=== PATIENT | male | born 1965 | race Caucasian/White ===

== ENCOUNTER → 2020-01-25 | Outpatient (CLI) | payer OTHER ==
[~2020-01-25] MED LIST: AVPAK EXTENDED100 M1 PO; KLONOPIN2 M1 PO; V-C FORTE CAPSUL1 MG PO
== END | disposition home or self-care (01) ==
LOC: LAB 15:03
PROVIDERS: Psychiatry & Neurology Neurology
DX: G40.812 Lennox-Gastaut syndrome, not intractable, without status epilepticus (principal)

== ENCOUNTER 2020-01-30 10:48 | Inpatient (IN) | payer OTHER ==
[2020-01-30 10:51] VITALS: BP 138/77
[2020-01-30 11:19] LABS: BASO % 0.4 % (0.0-1.0); EOS % 0.1 % (1.0-4.0); LYMPH # 1.2 10*3/uL (1.3-4.4); LYMPH % 15.4 % (27.0-41.0); MEAN CELL VOLUME 94.7 fl (80.0-94.0); MEAN CORPUSCULAR HGB 31.9 pg (27.0-31.0); MEAN CORPUSCULAR HGB CONC 33.7 g/dl (33.0-37.0); MEAN PLATELET VOLUME 9.4 fl (9.6-12.3); MONO # 1.2 10*3/uL (0.1-1.0); MONO % 16.1 % (3.0-9.0); NEUT # 5.2 10*3/uL (2.3-7.9); NEUT % 67.9 % (47.0-73.0); PLATELET COUNT AUTOMATED 197 10*3/uL (130-400); RED BLOOD COUNT 4.33 10*6/uL (4.50-5.90); RED CELL DISTRI WIDTH 12.5 % (0-14.5); WHITE BLOOD COUNT 7.6 10*3/uL (4.8-10.8)
[2020-01-30 11:35] LABS: ALBUMIN 4.5 gm/dl (3.1-4.5); ALKALINE PHOSPHATASE 85 U/L (45-117); BUN 23 mg/dl (7-24); CHLORIDE 99 mmol/L (98-107); CREATININE 1.28 mg/dL (0.70-1.30); POTASSIUM 3.7 mmol/L (3.5-5.1); SGOT/AST 53 IU/L (3-35); SGPT/ALT 46 U/L (12-78); SODIUM 134 mmol/L (136-145); TOTAL PROTEIN 7.7 gm/dL (6.4-8.2)
[2020-01-30 11:36] LABS: ETHYL ALCOHOL < 3.0 mg/dl (<3)
--- NOTE | 2020-01-30 11:47 | NUR ---
ALTHOUGH PT IS ALERT AND ORIENTED AND ANSWERS QUESTIONS APPROPRIATELY WHEN ASKED TO STAND, HE SITS UPRIGHT IN BED AND SEEMS EITHER UNABLE TO PHYSICALLY STAND OR CONFUSED ON WHAT IT ACTUALLY MEANS TO STAND. PT STATES HE KNOWS WHAT "STANDING UP" MEANS BUT DESPITE REPEATED ATTEMPTS IS UNABLE TO MAKE HIS BODY STAND. IT APPEARS SIMILAR TO A DYSKINESIA. DR MATHEWS MADE AWARE. PT WAS ASKED TO VP DESIGN ORDER TO PROVIDE A URINE SPECIMEN USING A URINAL AND CLAIMS HE IS UNABLE TO URINATE SITTING DOWN.
--- NOTE | 2020-01-30 12:45 | NUR ---
PT NOW STANDS DIRECTLY UPRIGHT AT THE FOOT OF THE BED AND STARTS SCREAMING LOUDLY AND USING PROFANE LANGUAGE AND APPEARS TO BE TRYING TO URINATE INTO THE WASTE BIN AT DOORWAY. I DID WALK PT TO BATHROOM WHERE I DID COLLECT URINE IN URINAL AND RETURNED HIM TO BED, DISROBED HIM AND BAGGED ALL CLOTHING, SHOES AND A SET OF KEYS AND PLACED IN MED ROOM. PT DID QUICKLY CALM DOWN AND WAS COMPLIANT AT ALL TIMES DESPITE THE SCREAMING AND CURSING. NEW MED ORDERS OBTAINED.
[2020-01-30 13:18] LABS: URINE AMPHETAMINES < 1000 (1000ng/ml); URINE BARBITURATES < 200 (200ng/ml); URINE BENZODIAZEPINES < 200 (200ng/ml); URINE CANNABINOIDS (THC) < 50 (50ng/ml); URINE COCAINE < 300 (300ng/ml); URINE METHADONE < 300 (300ng/ml); URINE OPIATES < 300 (300ng/ml)
[2020-01-30 13:26] LABS: URINE PHENCYCLIDINE < 25 (25ng/ml)
--- NOTE | 2020-01-30 14:16 | NUR ---
psychiatric assessment: met with client, he is not oriented to time, he does know who he is, he knows he is in a hospital but he thinks he is upstairs and that we switched the doctor out to the one that is in the er, he is having extreme flight of ideas, he is paranoid, he is yelling out when he goes into the bathroom, he appears paranoid, he doesnt think that he can stand up, but once he is helped up, then he understands that he can walk. he was found in his neighborhood, wandering and talking, confused and was brought to the er, i cannot get any furhter hx from him as he is not able to converse in a productive manner. once this client is medically stable i will refer him to the [facility] here. i am waiting on further labs.
--- NOTE | 2020-01-30 14:59 | NUR ---
PT UP TO WASTE BIN AGAIN WITH APPARENT MASTRUBATORY BEHAVIOR. RETURNED TO BED WITHOUT COMPLAINT. CALM AND COMPLIANT.
--- NOTE | 2020-01-30 17:02 | NUR ---
PT. STRAIGHT CATHED FOR 100CC OF URINE. PT COOPERATIVE, NOT ORIENTED.
[2020-01-30 17:08] LABS: BILIRUBIN NEGATIVE (NEGATIVE); BLOOD TRACE-LYSED (NEGATIVE); CLARITY CLEAR (CLEAR); COLOR YELLOW (YELLOW); GLUCOSE NEGATIVE (NEGATIVE); KETONE NEGATIVE (NEGATIVE); LEUKO ESTERASE NEGATIVE (NEGATIVE); NITRITE NEGATIVE (NEGATIVE); UROBILINOGEN 0.2 E.U./dl (0.2-1.0)
[2020-01-30 17:10] LABS: BACTERIA TRACE; EPITHELIAL CELLS 41-50
--- NOTE | 2020-01-30 18:25 | NUR ---
GAVE [facility] REPORT. PT.IS RESTING IN BED, TALKING TO HIMSELF
--- NOTE | 2020-01-30 19:40 | NUR ---
PATIENT MOVED INTO ROOM 2011 AT THIS TIME DUE TO PATIENT TRYING TO ELOPE. PRIOR TO PATIENT ATTEMPT TO ELOPE PATIENT WAS LYING IN BED TALKING TO SELF, THEN CLIMBED OUT OF BED AND STRIPPED NAKED. PATIENT THEN ATTEMPTED TO WALK OUT OF THE AMBULANCE BAY DOORS. RN TRIED TO REDIRECT PATIENT AT THIS TIME WITHOUT SUCCESS. EMS WERE HERE AND HELPED STOP PATIENT. PATIENT WAS NOT VIOLENT AT THIS TIME BUT HE DID NOT WANT TO BE TOUCHED AND JERKED HIS ARM AWAY FROM RN TOUCH. PATIENT THEN LOWERED TO THE GROUND AND WRAPPED IN A SHEET AND PLACED ON EMS CART AND THEN TRANSPORTED TO ROOM 2011 FOR PATIENT SAFETY FROM ELOPING. PATIENT THEN SAT ON FLOOR IN ROOM.
[2020-01-30] MEDS ORDERED: AVPAK EXTENDED100 M1 PO (19:53)
[2020-01-30] MEDS ORDERED: V-C FORTE CAPSUL1 MG PO (19:54)
--- NOTE | 2020-01-30 20:55 | NUR ---
REPORT GIVEN TO TAMEKA FROM [facility] AT THIS TIME, TAMEKA HERE TO TRANSPORT PATIENT TO [facility] WITH SECURITY AT THIS TIME.
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
--- NOTE | 2020-01-30 21:22 | NUR ---
BRITTNEEDON 10MG IM GIVEN IN LEFT THIGH UNABLE TO GET A SECURE HOLD TO TURN HIM. CLIENT THEN YELLED OUT AFTER THE SHOT YOUR TRYING TO BRING BACK A [employer]. ASSIST OF 4 USED FOR SAFETY
--- NOTE | 2020-01-30 21:45 | NUR ---
DR Peter YOUNG NOTIFIED OF ADMISSION. FULL UPDATE PROVIDED
--- NOTE | 2020-01-30 22:28 | NUR ---
SLEEPING AT THIS TIME. APPEARS GEODON EFFECTIVE
--- NOTE | 2020-01-30 22:28 | NUR ---
SLEEPING AT THIS TIME. APPEARS GEODON EFFECTIVE
[2020-01-30 23:14] VITALS: BP 116/68
--- NOTE | 2020-01-31 | NUR ---
RESTING QUIET IN QUIET ROOM. CLIENT HAS NO MEMORY OF EVENTS OF THE DAY. APPEARS DAZED BUT COOPERATIVE AND POLITE. IN QUIET ROOM FOR CLOSER MONITORING
--- NOTE | 2020-01-31 00:24 | NUR ---
RESTING QUIET IN QUIET ROOM. CLIENT HAS NO MEMORY OF EVENTS OF THE DAY. APPEARS DAZED BUT COOPERATIVE AND POLITE. IN QUIET ROOM FOR CLOSER MONITORING
--- NOTE | 2020-01-31 01:10 | NUR ---
INCONTINENT OF URINE. CHANGED AND CLIENT REQUESTS TO STAY IN EDI-CHAIR. APPEARS TO BE CLEARING MENTALLY
--- NOTE | 2020-01-31 04:59 | NUR ---
24 HR chart check completed.
--- NOTE | 2020-01-31 06:03 | NUR ---
CHANGED AFTER BEING INCONTINENT OF URINE. STILL DOESN'T RECALL ACTIVITIES OF YESTERDAY. MILD TREMORS NOTED IN ARMS AT TIMES. SPEACH CLEARER AND NOT PRESSURED. SLEPT A BROKEN 5 HOURS. CURRENTLY WATCHING TV
--- NOTE | 2020-01-31 08:27 | NUR ---
PT REFUSED VITAL SIGNS. WILL ATTEMPT AT A LATER TIME
--- NOTE | 2020-01-31 08:35 | NUR ---
PHYSICAL THERAPY Physical therapy evaluation attempted. Discussed with Nurse Lamb. Patient is pacing throughout BHU with no difficulty ambulating. Screen only at this time, no PT needs. Discharge PT orders. Thank you. Leah Gardiner,PT,DPT
--- NOTE | 2020-01-31 09:00 | NUR ---
Treatment Plan meeting was held this a.m. with Dr. Raymond, MARILYN Martinez, RN, AT, ARTIFICIAL SNOW MAKING MACHINE OPERATOR-S and Education Reviewer. Plan for discharge at the end of the week. Beginning of next week.
[2020-01-31 09:08] LABS: BASO % 0.4 % (0.0-1.0); EOS % 0.4 % (1.0-4.0); HEMATOCRIT 44.4 % (42.0-52.0); LYMPH # 0.9 10*3/uL (1.3-4.4); MEAN CELL VOLUME 93.5 fl (80.0-94.0); MEAN CORPUSCULAR HGB 31.6 pg (27.0-31.0); MEAN CORPUSCULAR HGB CONC 33.8 g/dl (33.0-37.0); MEAN PLATELET VOLUME 9.6 fl (9.6-12.3); MONO # 1.2 10*3/uL (0.1-1.0); MONO % 14.8 % (3.0-9.0); NEUT # 5.8 10*3/uL (2.3-7.9); NEUT % 73.1 % (47.0-73.0); PLATELET COUNT AUTOMATED 230 10*3/uL (130-400); RED BLOOD COUNT 4.75 10*6/uL (4.50-5.90); RED CELL DISTRI WIDTH 12.5 % (0-14.5); WHITE BLOOD COUNT 7.9 10*3/uL (4.8-10.8)
[2020-01-31 09:41] LABS: ALBUMIN 4.7 gm/dl (3.1-4.5); ALKALINE PHOSPHATASE 98 U/L (45-117); BUN 17 mg/dl (7-24); CHLORIDE 102 mmol/L (98-107); CHOLESTEROL 214 mg/dL (<200); CREATININE 1.15 mg/dL (0.70-1.30); HDL CHOLESTEROL 84 mg/dl (40-60); LDL CHOLESTEROL 116 mg/dL (9-159); SGOT/AST 77 IU/L (3-35); SGPT/ALT 51 U/L (12-78); SODIUM 139 mmol/L (136-145); TOTAL PROTEIN 8.3 gm/dL (6.4-8.2); TRIGLYCERIDES 69 mg/dl (<150); VLDL CHOLESTEROL 14 mg/dL (6-40)
[2020-01-31 10:04] LABS: VITAMIN D, 25-HYDROXY 28.6 ng/mL (30-100)
--- NOTE | 2020-01-31 10:20 | NUR ---
CLIENT IN QUIET ROOM HOLDING ARMS AND HANDS UP IN THE AIR AND YELLING "ITS NOT TIME". CLIENT JUMPING UP AND DOWN ACTING LIKE HE IS BOXING. CLIENT ACTING LIKE HE IS PUNCHING THE WALL, MAKING CONTACT WITH HIS FIST AND THE WALL LIGHTLY. CLIENT HAS RAMBLING ABOUT NONSENSICAL THINGS. UNABLE TO REDIRECT CLIENT AT THIS TIME. CODY NUNEZ UPDATED ON CLIENT CONDITION. ONCE MAYRA LOOKED AT CLIENT FROM ANOTHER ROOM THE CLIENT POINTED AT HER AND STATED "BLACK BITCH, GET OUT OF HERE" CLIENT PACING, RESTLESS, AGITATED, IRRITABLE, AND MANIC. PER MAYRA GIVE ATIVAN AND BRITTNEEDON NOW. WILL MONITOR CLIENT FOR EFFECTIVENESS OF MEDICATION.
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
--- NOTE | 2020-01-31 11:18 | NUR ---
Patient voicing paranoid delusions when this television writer met with him this AM. Pt displayed a suspicious and somewhat angry affect as he stated, "I know you're a doctor. I'm not telling you anything. You've run a background check on me. You know what you need to know." Pt continued that he knows all about psychotherapy playing with people's minds and he won't have it. Pt then pointed to a staff member standing in the olivo and stated, "And that alice can go to [facility]. I'm not telling her anything either. You want to play the game. I can play the game." Also observed pt talking to the unseen.
--- NOTE | 2020-01-31 11:19 | NUR ---
OT NOTE Occupational therapy order received and chart reviewed. Per discussion with nurse Lamb from [facility], patient is currently not appropriate for an OT evaluation. Per chart review, patient is ambulatory, however, ADL functional status is unknown. Will follow up with patient when appropriate. Thank you. Ann Barry, OTR/L
--- NOTE | 2020-01-31 15:50 | NUR ---
GROUP A AND B PT IS UNABLE TO ATTEND GROUP THERAPY AT THIS TIME. PT REMAINED IN A QUIET ROOM. PT ASSESSMENT WILL BE ATTEMPTED TOMORROW.
--- NOTE | 2020-01-31 18:33 | NUR ---
NASOPHARYNGEAL SWAB COLLECTED FOR COVID TESTING AND SENT TO LAB, PATIENT TOLERATED WELL.
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
[2020-01-31 20:00] VITALS: BP 139/78
--- NOTE | 2020-01-31 21:38 | NUR ---
Patient alert to person only. Mood isolative and withdrawn. Auditory and visual hallucinations noted with patient talking and responding to unseen others. Patient compliant with HS medications without any difficulty. Attempted to provided 1:1 for emotional support and therapeutic communication but patient refused. Patient ambulating hallway with steady gait unassisted but went to wrong room. Redirection effective with encouragement and was able to go to his room. Plan to continue to encourage medication compliance. Also will continue to offer 1:1 for emotional support and therapeutic communication. Redirect/reorient when needed/appropriate. Will continue to monitor moods/behaviors. Q 15 minute safety checks continued and maintained. See [facility] flowsheet for further documentation.
--- NOTE | 2020-02-01 00:18 | NUR ---
24 HR chart check completed.
--- NOTE | 2020-02-01 04:23 | NUR ---
Patient yelling out leave,evil,reset,live,God bless,there is no God,increased anxiety,shaking,non-sensical speech and staring up at ceiling. Redirection unsuccessful at this time. All non-pharmacological ineffective. Medicated with Ativan 1 mg IM as per doctor's order for increased anxiety/agitation. Will continue to monitor moods/behaviors.
--- NOTE | 2020-02-01 04:56 | NUR ---
Patient continued increased anxiety,yelling out,threatening unseen others,non-sensical speech and shaky. Unsuccessful attempts at redirection. Non-pharmacological interventions ineffective. Medicated with Geodon 10mg IM prn given as per doctor's order. Will continue to monitor moods/behaviors.
--- NOTE | 2020-02-01 05:19 | NUR ---
Patient resting quietly at this time. PRN medications effective. Will continue to monitor moods/behaviors.
--- NOTE | 2020-02-01 05:58 | NUR ---
Patient slept approx. 3 hours of interrupted sleep throughout shift. Q 15 minute safety checks continued and maintained.
[2020-02-01 07:34] VITALS: BP 132/65
--- NOTE | 2020-02-01 08:30 | NUR ---
Treatment Plan meeting was held this a.m. with MARILYN Martinez, RN, AT, RHODA-S and Roll Out Manager. Plan for discharge Next Week. Pt. will return home.
--- NOTE | 2020-02-01 11:50 | NUR ---
AM GROUP/ EXERCISE AND PICTIONARY PT DID NOT ATTEND MORNING GROUP THERAPY. PT WAS SITTING IN HIS ROOM AND CHOSE NOT TO ATTEND.
[2020-02-01] MEDS ORDERED: KLONOPIN2 M1 PO (13:04)
--- NOTE | 2020-02-01 13:05 | NUR ---
SPOKE WITH DR VILLAVICENCIO RE: PT BROTHER STATING HE SEES A NEUROLOGIST IN [place], [place] AND TAKES KLONOPIN 2MG TID FOR SEIZURES AND WAS TOLD HE IS NOT SUPPOSED TO STOP TAKING THE MEDS. MEDICATION VERIFIFED WITH PT CLAIM HISTORY, PER DR VILLAVICENCIO CONTINUE KLONOPIN.
--- NOTE | 2020-02-01 15:37 | NUR ---
GROUP A AND GROUP B PT DID NOT ATTEND EITHER GROUP THERAPY SESSION. PT WAS IN HIS ROOM.
--- NOTE | 2020-02-01 17:06 | NUR ---
CLIENT A&O TO PERSON, PLACE, TIME, AND SITUATION. CLIENT WITHDRAWN AND ISOLATIVE, BUT CALM. MEDICATION COMPLIANT WITHOUT DIFFICULTY. DENIES HALLUCINATIONS, DELUSIONS, SI/HI. NO OVERT S/S OF HALLUCINATIONS. EYE DARTING NOTED WHEN CODY RIVERA WAS IN ROOM TALKING TO HIM. NO SEXUAL BEHAVIORS NOTED. ANXIOUS MOOD. AMBULATORY WITH A STEADY GAIT. SLIGHT TREMORS NOTED. DENIES PAIN AT THIS TIME. 1:1 PROVIDED FOR THERAPEUTIC COMMUNICATION. BEHAVIORS MONITORED WITH Q15 MINUTE SAFETY CHECKS. SEE [facility] FLOWSHEET FOR SPECIFIC MONITORING. SPEECH IS GARBLED AND SLURRED AT TIMES. CLIENT GAVE PERMISSION TO THIS NURSE TO SPEAK TO HIS ELDEST BROTHER, SOFIA. BROTHER STATED PT SEES DR BAILON IN [place], WHOM IS A NEUROLOGIST. AND STATED PT IS CHANGING DRS FROM DR DORSEY TO [place]. CLIENTS APPOINTMENT WAS SCHEDULED FOR TODAY. SOFIA STATED CLIENT HAS A SCAR ON HIS BRAIN. IRRITABLE BOWEL/NERVOUS BOWEL, AND SCHIZOPHRENIA. SOFIA ALSO STATED CLIENT HAS AN APPOINTMENT AT [facility] ON February FOR AN EEG AND CLIENTS LAST SEIZURE WAS AT AGE 18. BROTHER THEN STATED HE WAS POA AND WAS ATTEMPTING TO GET IN CLIENTS APARTMENT TO GET THE PAPER WORK. SOFIA DROPPED PAPERWORK OFF AT THE HOSPITAL. PROJECT BUYER MADE AWARE. SWEATBAND MAKER MADE AWARE OF CLIENT APPOINTMENT. SOFIA ALSO STATED CLIENT WAS ON KLONOPIN 2MG TID FOR SEIZURES AND WAS RECOMMENDED BY THE NEUROLOGIST NOT TO STOP TAKING. DR VILLAVICENCIO MADE AWARE AND RECEIVED NEW ORDERS TO ADD KLONOPIN PREVIOUSLY TAKEN. SOFIA ALSO STATED THIS CLIENT HAS NERVE ISSUES AND BAD MOTOR SKILLS.
[2020-02-01 20:00] VITALS: BP 112/77
--- NOTE | 2020-02-01 21:21 | NUR ---
Patient alert and oriented x3. Mood anxious,isolative and withdrawn. Patient isolative to self while in diningroom with other patients. Patient's eyes were darting about room. No overt s/s of responding to internal stimuli at this time. Patient compliant with HS medications without any difficulty. Attempted to provided 1:1 for emotional support and therapeutic communication but patient refused. Patient ambulating hallway with steady gait unassisted Redirection effective with encouragement. Plan to continue to encourage medication compliance. Also will continue to offer 1:1 for emotional support and therapeutic communication. Redirect/reorient when needed/appropriate. Will continue to monitor moods/behaviors. Q 15 minute safety checks continued and maintained. See [facility] flowsheet for further documentation.
--- NOTE | 2020-02-02 00:15 | NUR ---
24 HR chart check completed.
--- NOTE | 2020-02-02 05:52 | NUR ---
Patient slept approx. 6 hours throughout shift. Q 15 minute safety checks continued and maintained.
[2020-02-02 08:00] VITALS: BP 148/80
--- NOTE | 2020-02-02 08:30 | NUR ---
Treatment Plan meeting was held this a.m. with Dr. Raymond via telephone, MARILYN Martinez, RN, AT, SMALL ELECTRIC ENGINE TECHNICIAN-S and Senior Treasury Analyst. Plan for discharge Next week. Pt. will return home at discharge.
--- NOTE | 2020-02-02 08:36 | NUR ---
Patient sitting in quiet room listening to radio quietly. Respirations easy and regular. Vital signs stable. No overt distress. [facility] DELGADO [facility]- on unit to see pt at this time, update given.
--- NOTE | 2020-02-02 09:00 | NUR ---
DR. BOYER ON UNIT TO ASSESS PATEINT.
--- NOTE | 2020-02-02 10:51 | NUR ---
MIGUEL BORRERO CNP ON UNIT TO ASSESS PATIENT.
--- NOTE | 2020-02-02 11:25 | NUR ---
PATIENT VOLUNTARILY SIGNED CONSENT TO TREAT.
--- NOTE | 2020-02-02 14:19 | NUR ---
Recieved call from pt's brother Alvaro Ashton, , pt gave this RN permission to speak with brother regarding pt's care. Alvaro provided pt's neurologist's name and phone number, Dr.Mohammad Davis [phone]. Alvaro states pt has an EEG scheduled for February 09 and states he is able to transport Lucio to this EEG if pt is discharged by then. Alvaro also states he is able to transport pt home at hospital discharge. At the conlcusion of the conversation Alvaro stated that on the day pt had his appointment, either January 23 or , with neurologist , that as he was getting into the car on the way to this appointment the patient "hit his head pretty hard". Alvaro states the pt did see the neurologist on that same date after this happened but neither the pt or the pt's brother reported this to . Call placed to [facility] and made aware of the above.
--- NOTE | 2020-02-02 18:41 | NUR ---
P- Slightly guarded. I- Orientation, mood and behaviors assessed. Assessed pt for SI/HI, hallucinations, paranoia and/or delusions. Medications administered as per physicians orders. Med education provided. Encouraged pt to attend and participate in morris milieu groups and activities. R- Pt is alert and oriented x4. Memory appears intact. Resps easy and even on room air. Mood stable, affect appropriate. Slightly guarded. Speech is rapid, soft, able to make needs known without difficulty. Pt denies SI/HI, hallucinations, paranoia or delusions. No evidence of sensory disturbances noted. Pt is medication compliant without difficulty. Interacts well with staff and peers. No aggressive behaviors or elopement attempts. Medication compliant without difficulty. No distress noted. P- Plan to continue current treatment, continue to monitor mood and behaviors, provide appropriate reorientation, redirection and 1:1 as needed. Continue to encourage medication compliance as well as group attendance and participation.
[2020-02-02 19:09] VITALS: BP 123/73
--- NOTE | 2020-02-02 22:05 | NUR ---
Patient alert and oriented x3. Mood calm,pleasant and cooperative. Patient more interactive with staff and other patients. No overt s/s of responding to internal stimuli at this time. Patient compliant with HS medications without any difficulty. Provided 1:1 for emotional support and therapeutic communication Patient ambulating hallway with steady gait unassisted. Redirection effective with encouragement. Plan to continue to encourage medication compliance. Also will continue to offer 1:1 for emotional support and therapeutic communication. Redirect/reorient when needed/appropriate. Will continue to monitor moods/behaviors. Q 15 minute safety checks continued and maintained. See [facility] flowsheet for further documentation.
--- NOTE | 2020-02-03 00:18 | NUR ---
24 HR chart check completed.
--- NOTE | 2020-02-03 06:52 | NUR ---
Patient slept approx. 6 hours throughout shift. Q 15 minute safety checks continued and maintained.
[2020-02-03 07:30] VITALS: BP 111/70
--- NOTE | 2020-02-03 08:15 | NUR ---
OT NOTE Occupational therapy order received and chart reviewed. Per discussion with nurse Tanner from [facility], patient is performing independent ADLs and independently completing functional mobility throughout the [facility]. No further OT indicated at this time, will discharge OT orders. Thank you for the referral. Ann Barry, OTR/L
--- NOTE | 2020-02-03 08:30 | NUR ---
Treatment Plan meeting was held this a.m. with Dr. Raymond, RN, AT, POWER CHECKER-S and Delivery Crew Member. Plan for dicharge next week. Pt. will return home at discharge.
--- NOTE | 2020-02-03 09:26 | NUR ---
rounded via telehealth. Medication changes made as per , orders read back and verified.
--- NOTE | 2020-02-03 11:51 | NUR ---
CORDELIA GROUP/LORENZO PT ATTENDED MORNING GROUP THERAPY AND PARTICIPATED IN ALL ACTIVITIES. PT WAS FOCUSED AND KNOWLEDGABLE. PT EXHIBITED NO ADVERSE BEHAVIORS WHILE IN GROUP.
--- NOTE | 2020-02-03 15:10 | NUR ---
Pt signed release of information allowing this RN to contact to request medical records. Attempted to obtain records from the office of . Recieved answering machine which states 's office is closed for the February 04 holiday, will reopen FridayFebruary 06.
--- NOTE | 2020-02-03 15:17 | NUR ---
Shift chart check completed.
--- NOTE | 2020-02-03 15:43 | NUR ---
GROUP A / BETTY PT ATTENDED GROUP THERAPY AND PARTICIPATED BY PLAYING BETTY. PT EXHIBITED NO ADVERSE BEHAVIORS WHILE IN GROUP.
--- NOTE | 2020-02-03 15:48 | NUR ---
GROUP B / BINGO PT ATTENDED GROUP THERAPY AND PARTICIPATED BY PLAYING [employer]. PT EXHIBITED NO ADVERSE BEHAVIORS WHILE IN GROUP.
--- NOTE | 2020-02-03 17:41 | NUR ---
No adverse moods or behaviors this shift. Pt is alert and oriented x4. Resps easy and even on room air. Mood appears stable, affect blunted. Speech is soft, rapid at times, able to communicate effectively and makes needs known. Pt denies SI/HI, intent or plan. Pt denies hallucinations, no response to internal stimuli noted. No paranoia or delusions noted. Pt is medication compliant without difficulty. Independent with ADLs. Ambulatory with steady gait. Interacts appropriately with staff and peers. Attending groups and activities. No aggressive behaviors or elopement attempts. No distress noted. Plan to continue current treatment, continue to monitor mood and behaviors, provide appropriate reorientation, redirection and 1:1 as needed. Continue to encourage medication compliance as well as group attendance and participation.
[2020-02-03 19:27] VITALS: BP 117/65
--- NOTE | 2020-02-03 20:18 | NUR ---
24 HR chart check completed.
--- NOTE | 2020-02-04 00:27 | NUR ---
PT HAS BEEN STABLE. ALERT & ORIENTED TO PERSON, PLACE & TIME. PLEASANT INTERACTIONS. SAT IN THE DINING ROOM COLORING & THEN WATCHED A MOVIE WITH PEERS. NO BEHAVIORS. PT HAS REMAINED CALM. COMPLIANT WITH MEDICATIONS. NO PHYSICAL COMPLAINTS VOICED. WILL CONTINUE TO MONITOR.
--- NOTE | 2020-02-04 05:13 | NUR ---
PT HAS SLEPT PAST 2315 WITH A BRIEF AWAKENING TO GO TO THE BATHROOM
[2020-02-04 08:05] VITALS: BP 123/85
--- NOTE | 2020-02-04 10:50 | NUR ---
on unit to see pt at this time.
--- NOTE | 2020-02-04 17:32 | NUR ---
No adverse moods or behaviors this shift. Pt is A+Ox4. Memory intact. Resps easy and even. Polite, calm and cooperative. Mood stable, affect blunted. Speech is WNL and coherent, able to make needs known without difficulty. Pt denies SI/HI, intent or plan. Pt denies hallucinations, no response to internal stimuli noted. No paranoia or delusions. Medication compliant without difficulty. Interacting appropriately with staff and peers, spent a majority of the day coloring and socalizing with peers in dining room. No behaviors. Plan to continue current treatment.
--- NOTE | 2020-02-04 18:15 | NUR ---
SHIFT CHART CHECK COMPLETED.
--- NOTE | 2020-02-04 19:42 | NUR ---
24 HR chart check completed.
[2020-02-04 19:52] VITALS: BP 116/66
--- NOTE | 2020-02-04 21:23 | NUR ---
PT HAS BEEN STABLE. ALERT & ORIENTED TO PERSON, PLACE & TIME. PLEASANT INTERACTIONS. SAT IN THE DINING ROOM COLORING & WATCHED A MOVIE WITH PEERS. ALSO SAT & LISTENED TO MUSIC. STATED "LAST NIGHT WAS THE BEST NIGHT I'VE HAD FOR A LONG TIME. I SLEPT LIKE A ROCK". NO BEHAVIORS. PT HAS REMAINED CALM. COMPLIANT WITH MEDICATIONS. NO PHYSICAL COMPLAINTS VOICED. WILL CONTINUE TO MONITOR.
--- NOTE | 2020-02-05 06:00 | NUR ---
PT HAS SLEPT PAST 29
[2020-02-05 07:36] VITALS: BP 113/67
--- NOTE | 2020-02-05 17:56 | NUR ---
Patient resting quietly with no c/o discomfort. Respirations easy and regular. Vital signs stable. No overt distress. GIVENS,WILLIAM
--- NOTE | 2020-02-05 19:29 | NUR ---
24 HR chart check completed.
[2020-02-05 19:35] VITALS: BP 129/78
--- NOTE | 2020-02-06 05:27 | NUR ---
PT HAS SLEPT QUIETLY PAST 2330 WITH 1 BRIEF AWAKENING TO GO TO THE BATHROOM
[2020-02-06 07:28] VITALS: BP 124/65
[2020-02-06 19:49] VITALS: BP 121/62
--- NOTE | 2020-02-06 20:20 | NUR ---
24 HR chart check completed.
--- NOTE | 2020-02-07 04:35 | NUR ---
PT HAS SLEPT PAST 3320
[2020-02-07 07:40] VITALS: BP 130/85
--- NOTE | 2020-02-07 08:30 | NUR ---
Treatment Plan meeting was held this a.m. with Dr. Raymond via telephone, COUNSELOR AIDE Michelle, RN, AT, [employer] and [employer]. Plan for discharge today. Pt. will follow with [facility].
--- NOTE | 2020-02-07 10:23 | NUR ---
DR NUNES UPDATED ON PT DISCHARGE
--- NOTE | 2020-02-07 13:47 | NUR ---
Patient was discharged to home today. Follow-up was scheduled with [facility]. While at [facility], pt's psychosis resolved. Pt participated in programming and was social with both peers and staff.
== END 2020-02-07 13:15 | disposition home or self-care (01) | DRG 750 ==
LOC: ED 10:48 → 3N 18:53 → EDHOLD 18:53 → 3N 19:02
PROVIDERS: Emergency Medicine; Nurse Practitioner Women's Health; ADMIT Psychiatry & Neurology Psychiatry
DX: F25.9 Schizoaffective disorder, unspecified (principal); F23 Brief psychotic disorder; E55.9 Vitamin D deficiency, unspecified; G40.909 Epilepsy, unspecified, not intractable, without status epilepticus; E78.00 Pure hypercholesterolemia, unspecified; Z91.040 Latex allergy status; Z83.3 Family history of diabetes mellitus; Z80.8 Family history of malignant neoplasm of other organs or systems; Z03.818 Encounter for observation for suspected exposure to other biological agents ruled out

== ENCOUNTER → 2020-05-31 | Outpatient (CLI) | payer OTHER ==
[~2020-05-31] MED LIST changes: +BENZTROPINE MESY1 MG PO; +ELIQUIS5 M1 PO; +EXTENDED PHENY200 MG PO; +PHENYTEK200 MG PO; +SEROQUEL XR150 MG PO
== END | disposition home or self-care (01) ==
LOC: RAD 10:41
PROVIDERS: ATTEND Internal Medicine Hematology & Oncology
DX: D68.69 Other thrombophilia (principal); Z86.718 Personal history of other venous thrombosis and embolism

== ENCOUNTER → 2020-06-01 | Outpatient (CLI) | payer OTHER | END | disposition home or self-care (01) | LOC: CT 05:03 | PROVIDERS: ATTEND Internal Medicine Hematology & Oncology | DX: N28.1 Cyst of kidney, acquired (principal); M47.814 Spondylosis without myelopathy or radiculopathy, thoracic region; M47.816 Spondylosis without myelopathy or radiculopathy, lumbar region; D68.69 Other thrombophilia; Z86.718 Personal history of other venous thrombosis and embolism ==

== ENCOUNTER 2020-07-08 03:13 | Emergency (ER) | payer OTHER ==
[~2020-07-08] VITALS: Ht 177.8 cm; Wt 70.3 kg
[~2020-07-08 03:13] MED LIST changes: -BENZTROPINE MESY1 MG PO; -ELIQUIS5 M1 PO; -EXTENDED PHENY200 MG PO; -PHENYTEK200 MG PO; -SEROQUEL XR150 MG PO
== END 2020-07-08 09:02 | disposition home or self-care (01) ==
LOC: ED 03:13
DX: R51.9 Headache, unspecified (principal); M54.2 Cervicalgia; M25.512 Pain in left shoulder; F25.9 Schizoaffective disorder, unspecified; E78.00 Pure hypercholesterolemia, unspecified; G40.909 Epilepsy, unspecified, not intractable, without status epilepticus; Z91.040 Latex allergy status; Z79.899 Other long term (current) drug therapy; Z98.890 Other specified postprocedural states; W10.8XXA Fall (on) (from) other stairs and steps, initial encounter; Y93.89 Activity, other specified; Y92.89 Other specified places as the place of occurrence of the external cause; Y99.8 Other external cause status

== ENCOUNTER 2020-07-11 18:25 | Emergency (ER) | payer OTHER ==
[~2020-07-11] VITALS: Ht 185.4 cm; Wt 71.7 kg
[2020-07-11 20:14] LABS: BASO % 0.7 % (0.0-1.0); EOS # 0.2 10*3/uL (0.0-0.4); EOS % 4.9 % (1.0-4.0); LYMPH # 1.1 10*3/uL (1.3-4.4); MEAN CELL VOLUME 95.2 fl (80.0-94.0); MEAN CORPUSCULAR HGB 30.6 pg (27.0-31.0); MEAN CORPUSCULAR HGB CONC 32.1 g/dl (33.0-37.0); MEAN PLATELET VOLUME 9.2 fl (9.6-12.3); MONO # 0.6 10*3/uL (0.1-1.0); MONO % 13.2 % (3.0-9.0); NEUT # 2.4 10*3/uL (2.3-7.9); PLATELET COUNT AUTOMATED 206 10*3/uL (130-400); RED BLOOD COUNT 4.41 10*6/uL (4.50-5.90); RED CELL DISTRI WIDTH 12.8 % (0-14.5); WHITE BLOOD COUNT 4.3 10*3/uL (4.8-10.8)
[2020-07-11 20:29] LABS: ALBUMIN 3.8 gm/dl (3.1-4.5); ALKALINE PHOSPHATASE 80 U/L (45-117); BUN 19 mg/dl (7-24); CHLORIDE 106 mmol/L (98-107); CREATININE 0.91 mg/dL (0.70-1.30); POTASSIUM 3.7 mmol/L (3.5-5.1); SGOT/AST 15 IU/L (3-35); SGPT/ALT 14 U/L (12-78); SODIUM 140 mmol/L (136-145); TOTAL PROTEIN 7.1 gm/dL (6.4-8.2)
== END 2020-07-11 22:24 | disposition home or self-care (01) ==
LOC: ED 18:25
PROVIDERS: Nurse Practitioner
DX: S09.90XA Unspecified injury of head, initial encounter (principal); F20.9 Schizophrenia, unspecified; Z91.040 Latex allergy status; Z79.899 Other long term (current) drug therapy; Z98.890 Other specified postprocedural states; W01.198A Fall on same level from slipping, tripping and stumbling with subsequent striking against other object, initial encounter; Y93.89 Activity, other specified; Y92.89 Other specified places as the place of occurrence of the external cause; Y99.8 Other external cause status

== ENCOUNTER 2020-07-18 11:19 | Inpatient (IN) | payer OTHER ==
[~2020-07-18] VITALS: Ht 185.4 cm; Wt 70.1 kg
[2020-07-18 11:20] VITALS: BP 155/80
[2020-07-18 11:58] LABS: BASO # 0.1 10*3/uL (0.0-0.1); BASO % 0.8 % (0.0-1.0); EOS # 0.2 10*3/uL (0.0-0.4); EOS % 2.8 % (1.0-4.0); HEMATOCRIT 45.7 % (42.0-52.0); LYMPH # 1.8 10*3/uL (1.3-4.4); LYMPH % 28.9 % (27.0-41.0); MEAN CELL VOLUME 95.8 fl (80.0-94.0); MEAN CORPUSCULAR HGB 30.4 pg (27.0-31.0); MEAN CORPUSCULAR HGB CONC 31.7 g/dl (33.0-37.0); MONO # 0.8 10*3/uL (0.1-1.0); MONO % 12.4 % (3.0-9.0); NEUT # 3.4 10*3/uL (2.3-7.9); NEUT % 54.9 % (47.0-73.0); PLATELET COUNT AUTOMATED 279 10*3/uL (130-400); RED BLOOD COUNT 4.77 10*6/uL (4.50-5.90); RED CELL DISTRI WIDTH 12.6 % (0-14.5); WHITE BLOOD COUNT 6.2 10*3/uL (4.8-10.8)
[2020-07-18 12:08] LABS: BILIRUBIN Negative (Negative); BLOOD Negative (Negative); CLARITY Clear (Clear); COLOR Yellow (Yellow); GLUCOSE Negative (Negative); KETONE Negative (Negative); LEUKO ESTERASE Negative (Negative); NITRITE Negative (Negative); SPECIFIC GRAVITY 1.015 (1.001-1.030); UROBILINOGEN 0.2 E.U./dl (0.0-1.0)
[2020-07-18 12:13] LABS: URINE AMPHETAMINES < 1000 (1000ng/ml); URINE BARBITURATES < 200 (200ng/ml); URINE BENZODIAZEPINES < 200 (200ng/ml); URINE CANNABINOIDS (THC) < 50 (50ng/ml); URINE COCAINE < 300 (300ng/ml); URINE METHADONE < 300 (300ng/ml); URINE OPIATES < 300 (300ng/ml)
[2020-07-18 12:13] LABS: ALBUMIN 4.3 gm/dl (3.1-4.5); ALKALINE PHOSPHATASE 97 U/L (45-117); BUN 17 mg/dl (7-24); CHLORIDE 105 mmol/L (98-107); CREATININE 1.02 mg/dL (0.70-1.30); POTASSIUM 3.2 mmol/L (3.5-5.1); SGOT/AST 20 IU/L (3-35); SGPT/ALT 15 U/L (12-78); SODIUM 142 mmol/L (136-145); TOTAL PROTEIN 8.1 gm/dL (6.4-8.2)
[2020-07-18 12:15] LABS: ACETAMINOPHEN (TYLENOL) < 5.0 ug/ml (10-30); ETHYL ALCOHOL < 3.0 mg/dl (<3)
[2020-07-18 12:15] LABS: URINE PHENCYCLIDINE < 25 (25ng/ml)
[2020-07-18 12:28] LABS: EPITHELIAL CELLS 0-2
[2020-07-18 13:23] VITALS: BP 148/76
--- NOTE | 2020-07-18 13:41 | NUR ---
WAS ABOUT TO TAKE PATIENT TO FLOOR AND THEY ARE HERE TO GET HIM FOR US.
[2020-07-18 14:56] VITALS: BP 152/87
--- NOTE | 2020-07-18 15:20 | NUR ---
Time: 1519 A 55 year old MALE admitted to under services of ANAND SHULTZ DO Pt. [place] via wheel [place]. Chief complaint: CHEMICAL DEPENDENCE . CATHY WALKER
--- NOTE | 2020-07-18 15:53 | NUR ---
[place] STAFF IN TO SEE PATIENT. PATIENT MEETS [facility]. PATIENT IS WANTING TO FOLLOW BACK UP WITH PSYCARE FOR HIS AFTERCARE PLAN. JUAN J MCMAHON B.A. CHEF DE CUISINE
[2020-07-18 16:00] VITALS: BP 128/75
[2020-07-18] MEDS ORDERED: EXTENDED PHENY200 MG PO (19:01)
[2020-07-18] MEDS ORDERED: ELIQUIS5 M1 PO (19:06)
[2020-07-18] MEDS ORDERED: SEROQUEL XR150 MG PO (19:10)
[2020-07-18] MEDS ORDERED: BENZTROPINE MESY1 MG PO (19:10)
[2020-07-18 20:00] VITALS: BP 124/74
--- NOTE | 2020-07-18 20:00 | NUR ---
PATIENT RESTING IN BED WITH NO S/S OF DISTRESS. BED IN LOWEST POSITION, CALL LIGHT IN REACH
[2020-07-19] VITALS: BP 116/66
--- NOTE | 2020-07-19 00:02 | NUR ---
24 HR chart check completed.
[2020-07-19 08:00] VITALS: BP 131/77
--- NOTE | 2020-07-19 09:54 | NUR ---
MAYRA LAINEZ NP NOTIFIED OF [facility] CONSULT.
--- NOTE | 2020-07-19 11:29 | NUR ---
MAYRA LAINEZ SPOKE WITH PATIENT VIA PHONE.
[2020-07-19 12:00] VITALS: BP 121/73
--- NOTE | 2020-07-19 15:04 | NUR ---
[place] STAFF IN TO SEE PATIENT. PATIENT'S AFTER CARE REMAINS THE SAME. PATIENT WILL BE FOLLOWING UP WITH [facility] IN [place] FOR AFTERCARE. JUAN J MCMAHON B.A. LOAN FUNDER
[2020-07-19 16:00] VITALS: BP 124/71
[2020-07-19 20:00] VITALS: BP 120/64
--- NOTE | 2020-07-19 20:30 | NUR ---
PT RESTING IN BED. FLAT AFFECT BUT PLEASANT AND COOPERATIVE. PATIENT HAS NO COMPLAINTS AND DENIES ANY SYMPTOMS OF WITHDRAWAL. CALL LIGHT KIKA MENDEZ, WILL MONITOR
--- NOTE | 2020-07-19 22:12 | NUR ---
24 HR chart check completed.
--- NOTE | 2020-07-19 23:23 | NUR ---
PRN TYLENOL GIVEN FOR PT COMPLAINTS OF HEADACHE. CALL LIGHT WITHIN REACH, WILL MONITOR
--- NOTE | 2020-07-19 23:29 | NUR ---
PATIENT CONTINUES TO DENY ANY NEEDS AT THIS TIME. CALL LIGHT WITHIN REACH, WILL MONITOR
[2020-07-20] VITALS: BP 116/73
--- NOTE | 2020-07-20 00:20 | NUR ---
PRN TYLENOL EFFECTIVE PER PT
--- NOTE | 2020-07-20 00:20 | NUR ---
PRN MEDICATION APPEARS EFFECTIVE, PT SLEEPING
--- NOTE | 2020-07-20 03:32 | NUR ---
PRN TRAZADONE GIVEN FOR PT COMPLAINTS OF SLEEPLESSNESS. CALL LIGHT WTIHIN ANDREA, WILL MONITOR
[2020-07-20 08:00] VITALS: BP 130/74
--- NOTE | 2020-07-20 10:56 | NUR ---
PT GIVEN TYLENOL FOR C/O HEADACHE. NO OTHER COMPLAINTS VOICED BY PT. WILL MONITOR FOR EFFECTIVENESS. CALL LIGHT IN REACH.
--- NOTE | 2020-07-20 11:56 | NUR ---
PT STATES THAT TYLENOL IS EFFECTIVE.
[2020-07-20 12:00] VITALS: BP 132/78
--- NOTE | 2020-07-20 12:59 | NUR ---
[facility] STAFF IN TO SEE PATIENT. PATIENT WILL FOLLOW UP WITH PSYCARE. PATIENT REPORTS THAT HE HAS SCHEDULED APPOINTMENT WITH THEM ON FRIDAY, July. JUAN J MCMAHON B.A. PRODUCTION TEAM MANAGER
--- NOTE | 2020-07-20 14:45 | NUR ---
PATIENT'S APPOINTMENT TIME AT [facility] HAS BEEN CHANGED TO July AT 10:40AM. PATIENT WAS NOTIFIED. JUAN J MCMAHON B.A. SCALE INSTALLER
[2020-07-20 16:00] VITALS: BP 134/74
--- NOTE | 2020-07-20 18:33 | NUR ---
PT SITTING UP IN BED. PLEASANT AND COOPERATIVE WITH STAFF. RESPIRATIONS UNLABORED.NO COMPLAINTS VOICED. WILL CONTINUE TO MONITOR. CALL LIGHT IN REACH.
[2020-07-20 20:00] VITALS: BP 111/74
--- NOTE | 2020-07-20 20:45 | NUR ---
IN TO ASSESS PATIENT. PATIENT COOPERATIVE. DENIES ANY ISSUES OR WITHDRAWAL SYMPTOMS CURRENTLY. PATIENT DENIES NEED FOR ANYTHING AT THIS TIME. CALL LIGHT WTIHIN REACH, WILL MONITOR
[2020-07-21] VITALS: BP 114/68
--- NOTE | 2020-07-21 00:42 | NUR ---
PRN TRAZODONE GIVEN FOR C/O SLEEPLESSNESS. CALL LIGHT WITHIN REACH, WILL MONITOR.
--- NOTE | 2020-07-21 01:40 | NUR ---
PRN TRAZADONE APPEARS EFFECTIVE, PT SLEEPING
[2020-07-21 08:00] VITALS: BP 120/79
[2020-07-21] MEDS ORDERED: AVPAK EXTENDED100 M1 PO (11:03)
[2020-07-21] MEDS ORDERED: PHENYTEK200 MG PO (11:03)
--- NOTE | 2020-07-21 11:11 | NUR ---
DAVID STAFF IN TO SEE PATIENT. MD STAFF SET UP TRTANSPORTATION THROUGH HIS INSURANCE FOR A RIDE HOME POST DISCHARGE. JUAN J MCMAHON B.A. PHOTOGRAPHER
[2020-07-21 12:00] VITALS: BP 131/76
--- NOTE | 2020-07-21 13:31 | NUR ---
Discharge instructions reviewed with patient/family. Patient receptive and verbalizes understanding. Follow-up care arranged. Written instructions given to patient/family. ELLIS ROD
== END 2020-07-21 13:30 | disposition home or self-care (01) | DRG 776 ==
LOC: ED 11:19 → EDHOLD 11:40 → 5E 11:40
PROVIDERS: Physician Assistant; ADMIT Internal Medicine; ATTEND Internal Medicine
DX: F13.230 Sedative, hypnotic or anxiolytic dependence with withdrawal, uncomplicated (principal); E87.6 Hypokalemia; G40.909 Epilepsy, unspecified, not intractable, without status epilepticus; E78.00 Pure hypercholesterolemia, unspecified; F25.0 Schizoaffective disorder, bipolar type; I82.412 Acute embolism and thrombosis of left femoral vein; I82.532 Chronic embolism and thrombosis of left popliteal vein; I82.552 Chronic embolism and thrombosis of left peroneal vein; Z91.040 Latex allergy status; Z83.3 Family history of diabetes mellitus; Z80.8 Family history of malignant neoplasm of other organs or systems; Z88.8 Allergy status to other drugs, medicaments and biological substances